=== PATIENT | female | born 1995 | race African-American/Black ===

== ENCOUNTER 2017-01-22 14:11 | Emergency (ER) | payer MEDICAID ==
[~2017-01-22] VITALS: Ht 165.1 cm; Wt 97.0 kg
[2017-01-22 17:26] VITALS: BP 121/71
== END 2017-01-22 17:42 | disposition home or self-care (01) ==
LOC: ER 16:08
DX: O99.513 Diseases of the respiratory system complicating pregnancy, third trimester (principal); J06.9 Acute upper respiratory infection, unspecified; Z3A.35 35 weeks gestation of pregnancy
CPT/HCPCS: 99281; 99282

== ENCOUNTER 2020-01-10 12:24 | Emergency (ER) | payer MEDICAID ==
[~2020-01-10] VITALS: Ht 165.1 cm; Wt 111.0 kg
[2020-01-10 15:51] LABS: BASOPHILS % 0.5 % (0.0-2.0); EOSINOPHILS % 1.1 % (0.0-5.0); HEMATOCRIT. 31.2 % (36.0-48.0); HEMOGLOBIN. 10.3 g/dL (12.0-16.0); LYMPHOCYTES % 29.7 % (20.0-50.0); MEAN CORPUSCULAR HEMOGLOBIN 23.9 pg (28.0-32.0); MEAN CORPUSCULAR VOLUME 72.2 fL (81.0-99.0); MEAN PLATELET VOLUME 7.5 fl (7.4-10.4); MONOCYTES % 9.2 % (2.0-8.0); NEUTROPHILS % 59.5 % (40.0-76.0); PLATELET 359 x1000/uL (130-400); RED BLOOD CELL COUNT 4.32 mill/uL (4.2-5.4); RED CELL DISTRIBUTION WIDTH 19.3 % (11.6-14.6)
[2020-01-10 15:56] LABS: CHLORIDE 101 mEq/L (98-107)
[2020-01-10] MEDS ORDERED: MEDROXYPROGESTERONE ACETATE 150MG/ML VIAL IM ONE (16:00)
[2020-01-10] MEDS ORDERED: IBUPROFEN 600MG TABLET PO ONE (16:00)
[2020-01-10 16:08] LABS: PROTHROMBIN TIME 10.9 sec (9.6-11.0)
[2020-01-10 16:10] LABS: B-HCG QUANTITATIVE < 1 mIU/mL (<3)
[2020-01-10] MEDS ORDERED: POTASSIUM CHLORIDE 20MEQ TABLET SR PO NR (17:15)
[2020-01-10 17:34] VITALS: BP 121/67
== END 2020-01-10 17:39 | disposition home or self-care (01) ==
LOC: ER 12:24
DX: N93.9 Abnormal uterine and vaginal bleeding, unspecified (principal); D64.9 Anemia, unspecified; Z90.49 Acquired absence of other specified parts of digestive tract
CPT/HCPCS: 36415; 76830; 76856; 80053; 84702; 85025; 85610; 86850; 86900; 86901; 96372; 99284; J1050; Z7610